=== PATIENT | male | born 1930 | race Caucasian/White ===

== ENCOUNTER 2018-02-18 21:46 | Emergency (ER) | payer MEDICARE, BC ==
[2018-02-18] MEDS ORDERED: NS 0.9% 1000 ML* 1,000 ML IV ONE (22:22)
[2018-02-18] MEDS ORDERED: Morphine INJ* 2 MG/ML 1 ML CARPUJECT IV ONE (22:26)
[2018-02-18 22:48] LABS: ABS Basophils 0.1 10^3/ul (0-0.2); ABS Eosinophils 0.1 10^3/ul (0-0.6); ABS Lymphocytes 1.2 10^3/ul (1.0-4.8); ABS Monocytes 0.7 10^3/ul (0-0.8); ABS Neutrophils 4.8 10^3/ul (1.5-7.7); ABS Nucleated RBC 0 10^3/ul; Eosinophil % 1.6 % (0-6); Hematocrit 42 % (42-52); Hemoglobin 14.5 g/dl (14.0-18.0); Lymphocyte % 17.7 % (25-47); Mean Corpuscular HGB Conc 35 g/dl (31-36); Mean Corpuscular Hemoglobin 33 pg (27-31); Mean Corpuscular Volume 96 fL (80-94); Mean Platelet Volume 7.6 um3 (7.4-10.4); Nucleated Red Blood Cells % 0; Platelet Count 235 10^3/ul (150-450); Red Blood Count 4.34 10^6/ul (4.0-5.4); Red Cell Distribution Width 13 % (10.5-15); White Blood Count 6.9 10^3/ul (3.5-10.8)
[2018-02-18 23:04] LABS: EGFR Non-African American 70.7 (>60)
[2018-02-18 23:54] LABS: Urine Appearance Clear; Urine Blood Negative (Negative); Urine Color Yellow; Urine Ketones Negative (Negative); Urine Protein Negative (Negative); Urine Specific Gravity 1.016 (1.010-1.030); Urine Urobilinogen Negative (Negative)
[2018-02-19 01:14] VITALS: BP 154/90
--- NOTE | 2018-02-19 08:17 | RAD ---
Indication: LEFT hip pain post fall from standing. LEFT total hip replacement. Comparison: August 19, 2017 Technique: AP pelvis and AP and frog-leg lateral views LEFT hip. Report: Prosthetic LEFT hip is normally located. Negative for periprosthetic fracture or findings of prosthesis loosening. Small focus of dystrophic bone adjacent to the superior lateral margin of the acetabulum is unchanged. Negative for pelvic fracture or joint diastases. The RIGHT hip is remarkable for mild osteophytosis and moderate superior joint space narrowing with associated subchondral sclerosis. Unremarkable soft tissue contours. IMPRESSION: No traumatic injury of the prosthetic LEFT hip evident.
--- NOTE | 2018-02-19 08:19 | RAD ---
Indication: Pain post fall. Comparison: LEFT hip of the same date and August 19, 2017 LEFT hip Technique: AP and lateral views LEFT femur. Report: Normally located prosthetic hip and knee components. No evidence for periprosthetic fracture or prosthesis component loosening. Negative for femur fracture. Unremarkable soft tissue contours. IMPRESSION: Negative exam.
--- NOTE | 2018-02-19 08:27 | RAD ---
Indication: Head trauma. Syncope. Comparison: No relevant prior exams available [place] [facility] [place]. Technique: Noncontrast CT vertex of skull through foramen magnum. Report: Moderate prominence of the cerebral sulci and cerebellar fissures as well as the ventricles reflecting atrophy. Negative for cintron matter white matter obscuration, intra or extra-axial hemorrhage, or mass effect. 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 Unremarkable orbital contents. No suspicious abnormality of the calvarium or skull base. Clear visualized paranasal sinuses and mastoid air spaces. Unremarkable scalp. IMPRESSION: Involutional change and stigmata of chronic small vessel ischemic disease. No traumatic injury or acute intracranial process evident.
--- NOTE | 2018-02-19 11:03 | RAD ---
Indication: Syncope. Comparison: December 17, 2016 Technique: Upright AP 20 to 59 hours Report: Mild elevation of the RIGHT hemidiaphragm similar to the prior exam. Mild linear opacities at the LEFT lung base most consistent with subsegmental atelectasis. Negative for pleural effusion or pneumothorax. Accounting for rightward rotation the heart, pulmonary vasculature, and mediastinal contours are unremarkable. Reversed prosthetic RIGHT glenohumeral joint noted. IMPRESSION: Minimal LEFT basilar subsegmental atelectasis. No significant acute cardiopulmonary process evident.
--- NOTE | 2018-02-23 22:51 | ED ---
Leo Nunez Sixian, scribed for Juvenal Santos MD on 02/18/18 at 2221 . Head Injury - HPI Summary HPI Summary: This patient is an 87 year old M BIBA to ED with a chief complaint of a head injury s/p a fall from standing since earlier today. The patient rates the pain 0/10 in severity. Symptoms aggravated and alleviated by nothing. Patient reports fainting, sharp pain in left leg, contusion on forehead. Patient denies prolonged period of LOC. - History Of Current Complaint Chief Complaint: EDHeadInjury Stated Complaint: FALL Time Seen by Provider: 02/18/18 21:54 Hx Obtained From: Patient Mechanism Of Injury: Fall From A Standing Position Onset/Duration: Started Hours Ago, Still Present Onset of Pain: Prior to Arrival Severity Currently: None Pain Intensity: 0 Pain Scale Used: 0-10 Numeric Aggravating Factor(s): Other: - nothing Alleviating Factor(s): Other: - nothin Associated Signs And Symptoms: Other: - Patient reports fainting, sharp pain in left leg, contusion on forehead. Patient denies prolonged period of LOC. - Allergies/Home Medications Allergies/Adverse Reactions: Allergies Allergy/AdvReac Type Severity Reaction Status Date / Time No Known Allergies Allergy Verified 09/24/14 06:39 Home Medications: Home Medications Acetaminophen TAB* [Tylenol TAB*] 650 mg PO Q6H PRN 02/18/18 [History Confirmed 02/18/18] Amoxicillin PO (*) [Amoxicillin 500 MG CAP*] 2,000 mg PO ONCE PRN 02/18/18 [ History Confirmed 02/18/18] Aspirin EC TAB* [Ecotrin EC Low Dose 81 MG*] 81 mg PO DAILY 02/18/18 [History Confirmed 02/18/18] Calcium Carbonate/Vitamin D3 [Calcium Carbonate/Vitamin] 1 tab PO BID 02/18/18 [ History Confirmed 02/18/18] Cholecalciferol (Vitamin D3) [Vitamin D3] 2,000 unit PO DAILY 02/18/18 [History Confirmed 02/18/18] Codeine Phosphate/Guaifenesin [Guaifen-Codeine 100-10 mg/5 ml] 10 ml PO Q4HR PRN 02/18/18 [History Confirmed 02/18/18] Diclofenac 1% GEL (NF) [Voltaren 1% GEL (NF)] 1 applic TOPICAL BID PRN 02/18/18 [History Confirmed 02/18/18] Docusate Sodium 500 mg PO DAILY 02/18/18 [History Confirmed 02/18/18] Fexofenadine (NF) [Catrachita 180 (NF)] 180 mg PO DAILY PRN 02/18/18 [History Confirmed 02/18/18] Melatonin (NF) [Meladox] 3 mg PO BEDTIME 02/18/18 [History Confirmed 02/18/18] Omeprazole CAP* [Prilosec CAP* 20 MG] 20 mg PO DAILY 02/18/18 [History Confirmed 02/18/18] Tamsulosin CAP* [Flomax CAP*] 0.4 mg PO DAILY 02/18/18 [History Confirmed ] Triamcinolone 0.1% OINT(NF) [Kenalog 0.1% OINT(NF)] 1 applic TOPICAL DAILY 02/18 [History Confirmed 02/18/18] Vit A/Vit C/Vit E/Zinc/Copper [Preservision Areds Softgel] 1 cap PO BID [History Confirmed 02/18/18] Vit E Acet/Gly/Dimeth/Water [Cetaphil Moisturizing] 1 lot TOPICAL DAILY [History Confirmed 02/18/18] PMH/Surg Hx/FS Hx/Imm Hx Endocrine/Hematology History: Denies: Hx Diabetes, Hx Sickle Cell Disease Cardiovascular History: Denies: Hx Hypertension, Hx Pacemaker/ICD, Other Cardiovascular Problems/ Disorders Respiratory History: Denies: Hx Asthma, Other Respiratory Problems/Disorders GI History: Reports: Hx Gastroesophageal Reflux Disease - WELL CONTROLLED WITH MEDICATION Denies: Other GI Disorders History: Denies: Hx Renal Disease, Other Problems/Disorders Musculoskeletal History: Reports: Hx Arthritis Denies: Other Musculoskeletal History Sensory History: Reports: Hx Cataracts - BILATERAL EYES, Hx Contacts or Glasses - GLASSES, Hx Glaucoma, Hx Hearing Aid - BILATERAL EARS Opthamlomology History: Reports: Hx Cataracts - BILATERAL EYES, Hx Contacts or Glasses - GLASSES, Hx Glaucoma Neurological History: Denies: Other Neuro Impairments/Disorders Psychiatric History: Denies: Hx Panic Disorder - Cancer History Hx Chemotherapy: No - Surgical History Surgery Procedure, Year, and Place: 1968 [facility] INNER EAR REPLACEMENT 1.5T ONLY PER . , APPENDIX, RT SHOULDER RCT REPAIR, LEFT KNEE REPLACEMENT, LEFT HIP REPLACEMENT, Hx Anesthesia Reactions: No Infectious Disease History: No Infectious Disease History: Denies: Traveled Outside the [place] in Last 30 Days - Family History Known Family History: Positive: Cardiac Disease Negative: Hypertension, Diabetes - Social History Alcohol Use: Occasionally Alcohol Amount: 1/WEEK Substance Use Type: Reports: None Hx Tobacco Use: No Smoking Status (MU): Former Smoker Amount Used/How Often: PIPE Review of Systems Musculoskeletal: Other - left leg pain Positive: Bruising - on forehead Neurological: Negative - no prolonged LOC , Other - fainting All Other Systems Reviewed And Are Negative: Yes Physical Exam - Summary Physical Exam Summary: Appearance: Well-appearing, no distress, Well-nourished Skin: Warm, color reflects adequate perfusion Head: 1x2 cm contusion to left anterior forehead, nontender, ecchymosis Eyes: Conjunctiva clear ENT: Normal inspection Neck: Supple, no nodes, no JVD. Respiratory: Lungs clear, Normal breath sounds, no respiratory distress Cardio: RRR, No murmur, pulses normal, brisk capillary refill Abdomen: soft, nontender, no guarding, no rebound Bowel sounds: present Musculoskeletal: Strength Intact/ ROM intact. No calf tenderness. No edema. Left anterior thigh, mild tenderness, no swelling no ecchymosis, FROM with some pain Neuro: Alert, muscle tone normal, facial symmetry, speech normal, sensory/motor intact, CN intact II-XII Psychological: Normal Triage Information Reviewed: Yes Vital Signs On Initial Exam: Initial Vitals Temp Pulse Resp BP Pulse Ox 97.7 F 87 16 185/93 96 02/18/18 21:51 02/18/18 21:51 02/18/18 21:51 02/18/18 21:51 02/18/18 21:51 Vital Signs Reviewed: Yes Diagnostics - Vital Signs Vital Signs Temp Pulse Resp BP Pulse Ox 02/18/18 21:51 97.7 F 87 16 185/93 96 - Laboratory Lab Results: Lab Results 02/18/18 02/18/18 02/18/18 Range/Units 22:38 22:38 22:38 WBC 6.9 (3.5-10.8) 10^3/ul RBC 4.34 (4.0-5.4) 10^6/ul Hgb 14.5 (14.0-18.0) g/dl Hct 42 (42-52) % MCV 96 H (80-94) fL MCH 33 H (27-31) pg MCHC 35 (31-36) g/dl RDW 13 (10.5-15) % Plt Count 235 (150-450) 10^3/ul MPV 7.6 (7.4-10.4) um3 Neut % (Auto) 70.1 (38-83) % Lymph % (Auto) 17.7 L (25-47) % Morton % (Auto) 9.8 H (0-7) % Eos % (Auto) 1.6 (0-6) % Baso % (Auto) 0.8 (0-2) % Absolute Neuts (auto) 4.8 (1.5-7.7) 10^3/ul Absolute Lymphs (auto) 1.2 (1.0-4.8) 10^3/ul Absolute Monos (auto) 0.7 (0-0.8) 10^3/ul Absolute Eos (auto) 0.1 (0-0.6) 10^3/ul Absolute Basos (auto) 0.1 (0-0.2) 10^3/ul Absolute Nucleated RBC 0 10^3/ul Nucleated RBC % 0 Sodium 139 (139-145) mmol/L Potassium 4.2 (3.5-5.0) mmol/L Chloride 105 (101-111) mmol/L Carbon Dioxide 28 (22-32) mmol/L Anion Gap 6 (2-11) mmol/L BUN 22 (6-24) mg/dL Creatinine 1.00 (0.67-1.17) mg/dL Est GFR ( Amer) 90.9 (>60) Est GFR (Non-Af Amer) 70.7 (>60) BUN/Creatinine Ratio 22.0 H (8-20) Glucose 119 H (70-100) mg/dL Calcium 9.4 (8.6-10.3) mg/dL Magnesium 2.4 (1.9-2.7) mg/dL Total Bilirubin 0.60 (0.2-1.0) mg/dL AST 17 (13-39) U/L ALT 12 (7-52) U/L Alkaline Phosphatase 49 (34-104) U/L Troponin I 0.00 (<0.04) ng/mL B-Natriuretic Peptide 112 H ( - 100) pg/mL Total Protein 6.5 (6.4-8.9) g/dL Albumin 4.3 (3.2-5.2) g/dL Globulin 2.2 (2-4) g/dL Albumin/Globulin Ratio 2.0 (1-3) Urine Color Urine Appearance Urine pH (5-9) Ur Specific [place] (1.010-1.030) Urine Protein (Negative) Urine Ketones (Negative) Urine Blood (Negative) Urine Nitrate (Negative) Urine Bilirubin (Negative) Urine Urobilinogen (Negative) Ur Leukocyte Esterase (Negative) Urine WBC (Auto) (Absent) Urine RBC (Auto) (Absent) Urine Bacteria (Absent) Hyaline Casts (Absent) Urine Glucose (Negative) Urine Ascorbic Acid (Negative) Serum Alcohol < 10 (<10) mg/dL 02/18/18 Range/Units 23:45 WBC (3.5-10.8) 10^3/ul RBC (4.0-5.4) 10^6/ul Hgb (14.0-18.0) g/dl Hct (42-52) % MCV (80-94) fL MCH (27-31) pg MCHC (31-36) g/dl RDW (10.5-15) % Plt Count (150-450) 10^3/ul MPV (7.4-10.4) um3 Neut % (Auto) (38-83) % Lymph % (Auto) (25-47) % Morton % (Auto) (0-7) % Eos % (Auto) (0-6) % Baso % (Auto) (0-2) % Absolute Neuts (auto) (1.5-7.7) 10^3/ul Absolute Lymphs (auto) (1.0-4.8) 10^3/ul Absolute Monos (auto) (0-0.8) 10^3/ul Absolute Eos (auto) (0-0.6) 10^3/ul Absolute Basos (auto) (0-0.2) 10^3/ul Absolute Nucleated RBC 10^3/ul Nucleated RBC % Sodium (139-145) mmol/L Potassium (3.5-5.0) mmol/L Chloride (101-111) mmol/L Carbon Dioxide (22-32) mmol/L Anion Gap (2-11) mmol/L BUN (6-24) mg/dL Creatinine (0.67-1.17) mg/dL Est GFR ( Amer) (>60) Est GFR (Non-Af Amer) (>60) BUN/Creatinine Ratio (8-20) Glucose (70-100) mg/dL Calcium (8.6-10.3) mg/dL Magnesium (1.9-2.7) mg/dL Total Bilirubin (0.2-1.0) mg/dL AST (13-39) U/L ALT (7-52) U/L Alkaline Phosphatase (34-104) U/L Troponin I (<0.04) ng/mL B-Natriuretic Peptide ( - 100) pg/mL Total Protein (6.4-8.9) g/dL Albumin (3.2-5.2) g/dL Globulin (2-4) g/dL Albumin/Globulin Ratio (1-3) Urine Color Yellow Urine Appearance Clear Urine pH 6.0 (5-9) Ur Specific [place] 1.016 (1.010-1.030) Urine Protein Negative (Negative) Urine Ketones Negative (Negative) Urine Blood Negative (Negative) Urine Nitrate Negative (Negative) Urine Bilirubin Negative (Negative) Urine Urobilinogen Negative (Negative) Ur Leukocyte Esterase Trace A (Negative) Urine WBC (Auto) Trace(0-5/hpf) (Absent) Urine RBC (Auto) Trace(0-2/hpf) (Absent) Urine Bacteria Absent (Absent) Hyaline Casts Present A (Absent) Urine Glucose Negative (Negative) Urine Ascorbic Acid * A (Negative) Serum Alcohol (<10) mg/dL Result Diagrams: 02/18/18 22:38 02/18/18 22:38 Lab Statement: Any lab studies that have been ordered have been reviewed, and results considered in the medical decision making process. - Radiology CXR Radiology Interpretation Completed By: ED Physician - No acute disease progress. L femur XR Radiology Interpretation Completed By: ED Physician - Hardware in place, no acute fracture. Pelvic XR Radiology Interpretation Completed By: ED Physician - No acute fracture, dislocation. - CT head CT Interpretation Completed By: Radiologist - CT head reveals there is no intra or extra axial hemorrhage or collection. No mass lesion or midline shift. There is moderate cortical atrophy. The size of the ventricles corresponds to the degree of cortical atrophy. Normal cintron white matter differentiation. Low attenuation in the periventricular white matter compatible with chronic microvascular ischemic changes. The calvarium is intact. The visualized paranasal sinuses and mastoid air cells are clear. ED physician has reviewed this radiology report. - EKG 2311 Cardiac Rate: NL EKG Rhythm: Sinus Rhythm - 88 BPM EKG Interpretation: Normal axis, normal interval, no ST/T wave changes. Re-Evaluation - Re-Evaluation First Eval Re-Evaluation Time: 01:13 Change: Improved Comment: Pt awake and alert; pt resting comfortably in bed. Pt follwoing commands appropriately. Pt hemodyanimcally stable without any acute ECG or BP changes. Head Injury Course/Dx - Diagnoses Differential Diagnosis/HQI/PQRI: Cerebral Contusion, Cervical Sprain, Contusion , Hematoma, Intracranial Bleed, Other - femur fracture Provider Diagnoses: Syncope, Minor head injury, Contusion, hip Discharge - Sign-Out/Discharge Documenting (check all that apply): Discharge - Discharge Plan Condition: Improved Disposition: HOME Prescriptions: Acetaminop/Codeine 30 MG TAB* [Tylenol/Codeine 30 MG TAB*] 1 - 2 tab PO Q6H PRN #10 tab MDD 4 tablets PRN Reason: Pain Patient Education Materials: Syncope (ED), Head Injury (ED), Hip Contusion (ED) Referrals: Spencer Ray MD [Primary Care Provider] - 3 Days Additional Instructions: RETURN TO THE EMERGENCY DEPARTMENT FOR CHANGING OR WORSENING SYMPTOMS. - Billing Disposition and Condition Condition: IMPROVED Disposition: HOME The documentation as recorded by the Leo gipson Sixian accurately reflects the service I personally performed and the decisions made by me, Juvenal Santos MD.
== END 2018-02-19 01:41 | disposition home or self-care (01) ==
LOC: ED 21:46
DX: R55 Syncope and collapse (principal); S09.90XA Unspecified injury of head, initial encounter; S70.00XA Contusion of unspecified hip, initial encounter; S00.93XA Contusion of unspecified part of head, initial encounter; Z87.891 Personal history of nicotine dependence; W19.XXXA Unspecified fall, initial encounter; Y92.9 Unspecified place or not applicable
CPT/HCPCS: 36415; 70450; 71045; 80053; 80320; 81003; 81015; 83735; 83880; 84484; 85025; 87086; 93005; 99282; G0480; J2270